=== PATIENT | female | born 1940 | race Caucasian/White ===

== ENCOUNTER → 2018-08-12 | Outpatient (CLI) | payer OTHER, MEDICARE ==
[~2018-08-12] MED LIST: BACTROBAN CREAM30 G1 TOP; BISACODYL5 MG PO; DIOVAN320 MG PO; ERYTHROMYCIN250 MG PO; FIBERCON625 M1 PO; LEVOTHYROXIN0.125 M1 PO; MIRALAX17 GM PO; PACERONE 200 M200 M1 PO; REGLAN 10 MG TA10 MG PO; SENNA-DOCUSATE1 EACH PO
--- NOTE | 2018-08-12 15:20 | 2DMMODE ---
[place] [address] 2 D/M-MODE ECHOCARDIOGRAM Name: PATRICIA HOFFMAN Room: [facility]#: [id number] Admission: 08/12/18 Attend Phys: Aurea Todd MD Discharge: Date of : 36 Date of Service: 08/12/18 1520 Report #: [id number] THIS REPORT FOR: //name// APPROVED REPORT Study performed: 08/12/2018 12:57:58 EXAM: Comprehensive 2D, Doppler, and color-flow Echocardiogram Patient Location: Out-Patient BSA: 1.76 HR: 109 bpm BP: 109/67 mmHg Other Information Study Quality: Good Indications Atrial Fibrillation Fatigue 2D Dimensions IVSd: 11.47 (7-11mm) LVOT Diam: 20.08 (18-24mm) LVDd: 51.41 mm PWd: 10.42 (7-11mm) Ascending Ao: 32.15 (22-36mm) LVDs: 34.26 (25-40mm) Aortic Root: 25.23 mm Volumes Left Atrial Volume (Systole) LA ESV Index: 18.20 mL/m2 Aortic Valve AoV Peak Crispin.: 2.04 m/s AO Peak Gr.: 16.61 mmHg LVOT Max P.36 mmHg AO Mean Gr.: 10.37 mmHg LVOT Mean P.16 mmHg LVOT Max V: 0.77 m/s AO V2 VTI: 38.10 cm LVOT Mean V: 0.50 m/s CECILIA (VTI): 1.33 cm2 LVOT V1 VTI: 16.04 cm Mitral Valve MV Decel. Time: 246.52 ms MV PHT: 71.49 ms MVA (PHT): 3.08 [place]2 [place] [address] 2 D/M-MODE ECHOCARDIOGRAM Name: DALTONPATRICIA MAVIS Room: [facility]#: [id number] Admission: 08/12/18 Attend Phys: Aurea Todd MD Discharge: Date of : 36 Date of Service: 08/12/18 1520 Report #: [id number] TDI Medial E' Crispin.: 0.09 m/s Lateral E' Crispin.: 0.11 m/s Pulmonary Valve PV Peak Crispin.: 1.03 m/s PV Peak Gr.: 4.27 mmHg Tricuspid Valve RAP Estimate: 5.00 mmHg TR Peak Gr.: 26.23 mmHg RVSP: 31.23 mmHg PA Pressure: 31.23 mmHg Left Ventricle The left ventricle is normal size. There is normal LV segmental wall motion. There is normal left ventricular wall thickness. Left ventricular systolic function is normal. The left ventricular ejection fraction is within the normal range. LVEF is 55-60%. The left ventricular diastolic function is normal. Right Ventricle The right ventricle is normal size. The right ventricular systolic function is normal. Atria The left atrium size is normal. The right atrium size is normal. Aortic Valve Aortic valve is mildly calcified. No aortic regurgitation is present. Mild aortic stenosis. Mitral Valve Mild mitral annular calcification. Mild mitral regurgitation. No evidence of mitral valve stenosis. Tricuspid Valve The tricuspid valve is normal in structure. Mild tricuspid regurgitation. estimated pa pressure 40 mm Hg Pulmonic Valve The pulmonary valve is normal in structure. There is no pulmonic valvular regurgitation. Great Vessels The aortic root is normal in size. IVC is normal in size and collapses >50% [place] [address] 2 D/M-MODE ECHOCARDIOGRAM Name: PATRICIA HOFFMAN Room: [facility]#: [id number] Admission: 08/12/18 Attend Phys: Aurea Todd MD Discharge: Date of : 36 Date of Service: 08/12/18 1520 Report #: [id number] Pericardium There is no pericardial effusion. <Conclusion> LVEF is 55-60%. Mild aortic stenosis. Mild mitral regurgitation. Mild tricuspid regurgitation. estimated pa pressure 40 mm Hg <ELECTRONICALLY SIGNED> By: Kvng Phipps MD, [facility] 08/12/18 1520 1520 1520 Kvng Phipps MD, FACC /INF
== END ==
LOC: M.CRD 12:07
DX: I08.3 Combined rheumatic disorders of mitral, aortic and tricuspid valves (principal); I48.91 Unspecified atrial fibrillation; R93.1 Abnormal findings on diagnostic imaging of heart and coronary circulation

== ENCOUNTER → 2018-08-12 | Outpatient (CLI) | payer OTHER | LOC: M.CT 12:22 | DX: Z13.6 Encounter for screening for cardiovascular disorders (principal) ==

== ENCOUNTER → 2018-10-03 | Outpatient (CLI) | payer OTHER, MEDICARE ==
[~2018-10-03] MED LIST changes: +ASPIR 8181 MG PO; +BENICAR40 MG PO; +SYNTHROID175 MCG PO
--- NOTE | 2018-10-03 14:12 | CARDNUC ---
[place] [address] CARDIAC NUCLEAR IMAGING REPORT Name: PATRICIA HOFFMAN Room: [facility]#: [id number] Admission: 10/03/18 Attend Phys: Kvng Phipps MD Discharge: Date of : 36 Date of Service: 10/03/18 1412 Report #: [id number] THIS REPORT FOR: //name// APPROVED REPORT Imaging Protocol: Rest Tc-99m/Stress Tc-99m 1 day Study performed: 10/03/2018 07:30:00 Indication: Fatigue Patient Location: Out-Patient Stress Tech: Nanette Zhou Stress Nurse: Lynette Sears RN NM Tech:ANDREW Buck Ht: 5 ft 7 in Wt: 140 lbs BSA: 1.74 m2 HR: 105 bpm BP: 162/105 mmHg BMI: 21.92 Rhythm: Atrial Fibrillation Medical History Medical History: CAD non obstructive, HTN, Atrial Fibrillation, Fatigue Medications: Olmesartan Allergies: No known drug allergies Cardiac Risk Factors: Age, HTN Previous Cardiac Procedures: NONE Pretest Chest Pain Characteristics: NONE Exercise History: Physically active Physical Disabilities: NONE Meds Held (24 hrs): NONE Meds Held (48 hrs): NONE Resting Data Rest SPECT myocardial perfusion imaging was performed in supine position 30 minutes following the intravenous injection of 11.9 mCi of Tc-99m Sestamibi. Time of rest injection: 0750 Date: 10/03/2018 The images were gated to evaluate regional wall motion and calculate left ventricular ejection fraction. Administration Route: IV Pharmacologic Stress Pharmacologic stress test was performed by injecting Regadenoson 0.4 mg IV push over 10-15 seconds immediately followed by the intravenous injection of 33.8 mCi of Tc-99[place] [address] CARDIAC NUCLEAR IMAGING REPORT Name: PATRICIA HOFFMAN Room: [facility]#: [id number] Admission: 10/03/18 Attend Phys: Kvng Phipps MD Discharge: Date of : 36 Date of Service: 10/03/18 1412 Report #: [id number] Pharmacologic stress test was performed by injecting Regadenoson 0.4 mg IV push followed by the intravenous injection of mCi of Time of stress injection: 929 Date: 10/03/2018 Administration Route: IV Gated Stress SPECT was performed 40 minutes after stress injection. The images were gated to evaluate regional wall motion and calculate left ventricular ejection fraction. Stress only was performed in the Supine position. Stress Test Details Stress Test: Pharmacologic stress testing performed using 0.4 mg of regadenoson per 5 mL given IV over 10 seconds. HR Max Heart Rate (APMHR): 140 bpm Resting HR: 105 bpm Target HR (85% APMHR): 119 bpm Max HR Achieved: 129 bpm % of APMHR: 92 Recovery HR: 117 bpm HR response to stress: Accelerated HR response to stress BP Resting BP: 162/105 mmHg Max BP: 137/88/ mmHg Recovery BP: 136/97 mmHg BP response to stress: Normal blood pressure response to stress. ECG Resting ECG: Atrial Fibrillation Stress ECG: Atrial Fibrillation ST Change: None Recovery ECG: Atrial Fibrillation Recovery ST Change: None Clinical Reason for Termination: Completed protocol Stress Symptoms: Fatigue SOA Nurse Comments PATIENT TOLERATED TEST WITHOUT MAJOR DIFFICULTY Stress ECG Conclusion negative [place] [address] CARDIAC NUCLEAR IMAGING REPORT Name: PATRICIA HOFFMAN Room: [facility]#: [id number] Admission: 10/03/18 Attend Phys: Kvng Phipps MD Discharge: Date of : 36 Date of Service: 10/03/18 1412 Report #: [id number] Study: Good Artifact: Mild Diaphragmatic artifact Lung Uptake: Normal Study Data At rest, the left ventricular ejection fraction was 51%.. Post stress, the left ventricular ejection was 51%.. SSS: 4 SRS: 0 SDS: 4 Perfusion Review of rest data reveals normal perfusion, without perfusion defects.Imaging obtained following vasodilator stress demonstrate a similar, uniform uptake of tracer without defects. LVEDV is normal.No segental wall motion abnormality seen. Images were reviewed using Tongxue. Wall Motion normal all segments Nuclear Conclusion ECG Findings: negative for ischemia afib noted Clinical Findings: negative for ischemia Nuclear Findings: negative for ischemia Exercise Capacity: not assessed Left Ventricular Function: normal Risk Study: low Negative perfusion nuclear stress test for ischemia or infarct.Low normal ejection fraction <Conclusion> negative for ischemia <ELECTRONICALLY SIGNED> By: Chase Spaulding MD, FACC 10/03/18 1412 11 141 Chase Spaulding MD, FACC /INF
== END ==
LOC: M.NUC 09-11 12:05
DX: I25.10 Atherosclerotic heart disease of native coronary artery without angina pectoris (principal); I48.91 Unspecified atrial fibrillation; I10 Essential (primary) hypertension; E78.00 Pure hypercholesterolemia, unspecified; Z90.710 Acquired absence of both cervix and uterus; Z90.11 Acquired absence of right breast and nipple; Z85.3 Personal history of malignant neoplasm of breast

== ENCOUNTER → 2020-05-04 | Outpatient (CLI) | payer OTHER, MEDICARE ==
[2020-05-04 09:53] LABS: ABSOLUTE BASOPHILS 0.1 thou/uL (0.0-0.2); ABSOLUTE EOSINOPHILS 0.1 thou/uL (0.0-0.7); ABSOLUTE LYMPHOCYTES 0.9 thou/uL (0.8-5.3); ABSOLUTE MONOCYTES 0.5 thou/uL (0.0-1.2); ABSOLUTE NEUTROPHILS 3.6 thou/uL (1.6-8.1); EOSINOPHILS 2.5 %; HEMATOCRIT 39.1 % (37.0-47.0); HEMOGLOBIN 13.6 gm/dL (12.0-15.0); LYMPHOCYTES 17.3 %; MCH 35.1 pg (26.0-34.0); MCHC 34.9 g/dL (28.0-37.0); MCV 100.5 fL (80.0-100.0); MONOCYTES 10.1 %; MPV 7.4 fl. (7.2-11.1); NUCLEATED RBCS 0 /100WBC; PLATELET COUNT* 237 thou/uL (150-400); POLYS 69.1 %; RBC 3.89 mil/uL (4.20-5.00); RDW-CV 13.5 % (10.5-14.5); WBC 5.2 thou/uL (4.0-11.0)
[2020-05-04 10:09] LABS: ALBUMIN 4.1 g/dL (3.4-5.0); CREATININE 0.9 mg/dL (0.6-1.3); POTASSIUM 3.2 mmol/L (3.5-5.1); TOTAL BILIRUBIN 0.7 mg/dL (<0.1-1.0); TOTAL PROTEIN 7.6 g/dL (6.4-8.2)
[2020-05-04 11:15] LABS: ESR (SEDRATE) 13 mm/hr (0-30)
[2020-05-05 04:06] LABS: GLYCOHEMOGLOBIN (HGB A1C) 5.2 % (4.8-5.6)
== END ==
LOC: M.LAB 09:16 → M.CT 11:00
PROVIDERS: ATTEND Internal Medicine Gastroenterology
DX: K57.30 Diverticulosis of large intestine without perforation or abscess without bleeding (principal); I25.10 Atherosclerotic heart disease of native coronary artery without angina pectoris; R63.4 Abnormal weight loss; M47.816 Spondylosis without myelopathy or radiculopathy, lumbar region

== ENCOUNTER 2021-01-21 03:34 | Inpatient (IN) | payer OTHER, MEDICARE ==
[~2021-01-21] VITALS: Ht 170.2 cm; Wt 63.3 kg
--- NOTE | ~2021-01-21 | PROC ---
[address] [address] PROCEDURE REPORT Name: PATRICIA HOFFMAN Room: [address] ADM IN M.R.#: [id number] Admission: 01/21/21 Attend Phys: Isabella Millan MD Discharge: Date of : 36 Report #: [id number] THIS REPORT FOR: cc: Jose Boone Vincent R. DO [facility],Medical Records Staff ~ For GI report, please see the Provation report in Perceptive 7 content. By: 1350Medical Records Staff FLYNN /AURE
[2021-01-21 03:35] VITALS: BP 181/105
[2021-01-21] MEDS ORDERED: LEVO-T100 MCG PO (03:44)
[2021-01-21] MEDS ORDERED: COZAAR 25 MG TA25 M1 PO (03:44)
[2021-01-21 05:26] LABS: ABSOLUTE EOSINOPHILS 0.1 thou/uL (0.0-0.7); ABSOLUTE LYMPHOCYTES 0.8 thou/uL (0.8-5.3); ABSOLUTE MONOCYTES 0.6 thou/uL (0.0-1.2); ABSOLUTE NEUTROPHILS 8.7 thou/uL (1.6-8.1); BASOPHILS 0.4 %; HEMATOCRIT 33.2 % (37.0-47.0); HEMOGLOBIN 12.2 gm/dL (12.0-15.0); LYMPHOCYTES 8.1 %; MCH 35.9 pg (26.0-34.0); MCHC 36.6 g/dL (28.0-37.0); MCV 97.9 fL (80.0-100.0); MONOCYTES 6.3 %; MPV 7.3 fl. (7.2-11.1); NUCLEATED RBCS 0 /100WBC; PLATELET COUNT* 212 thou/uL (150-400); POLYS 84.2 %; RDW-CV 12.2 % (10.5-14.5); WBC 10.3 thou/uL (4.0-11.0)
[2021-01-21 05:48] LABS: CALCIUM 8.6 mg/dL (8.5-10.1); CREATININE 0.7 mg/dL (0.6-1.3)
[2021-01-21 05:51] LABS: POTASSIUM 2.3 mmol/L (3.5-5.1)
[2021-01-21 09:12] VITALS: BP 126/79
[2021-01-21 09:21] LABS: CALCIUM 8.1 mg/dL (8.5-10.1); CREATININE 0.6 mg/dL (0.6-1.3)
[2021-01-21 09:22] LABS: POTASSIUM 2.3 mmol/L (3.5-5.1)
--- NOTE | 2021-01-21 12:08 | 2DMMODE ---
[place] [address] 2 D/M-MODE ECHOCARDIOGRAM Name: PATRICIA HOFFMAN Room: [place] [address] ADM IN [place]#: [id number] Admission: 01/21/21 Attend Phys: Isabella Millan, Discharge: Date of : 36 Date of Service: 01/21/21 1207 Report #: [id number] THIS REPORT FOR: cc: Jose Boone,Jose Rene,Sotero Pugh MD [facility] ~ APPROVED REPORT Study performed: 01/21/2021 09:18:47 EXAM: Comprehensive 2D, Doppler, and color-flow Echocardiogram Patient Location: In-Patient Room #: er Status: routine BSA: 1.66 HR: 98 bpm BP: 126/79 mmHg Rhythm: Atrial Fibrillation Other Information Study Quality: Good Indications Pre-Op Atrial Fibrillation 2D Dimensions IVSd: 10.59 (7-11mm) LVOT Diam: 21.45 (18-24mm) LVDd: 48.70 mm PWd: 11.13 (7-11mm) Ascending Ao: 32.28 (22-36mm) LVDs: 33.76 (25-40mm) Aortic Root: 32.28 mm Volumes Left Atrial Volume (Systole) LA ESV Index: 37.80 mL/m2 Aortic Valve AoV Peak Crispin.: 2.78 m/s AO Peak Gr.: 30.88 mmHg LVOT Max P.06 mmHg AO Mean Gr.: 18.82 mmHg LVOT Mean P.10 mmHg LVOT Max V: 0.72 m/s AO V2 VTI: 51.69 cm LVOT Mean V: 0.49 m/s CECILIA (VTI): 0.99 cm2 LVOT V1 VTI: 14.11 [place] [address] 2 D/M-MODE ECHOCARDIOGRAM Name: PATRICIA HOFFMAN MAVIS Room: [address] IN [facility]#: [id number] Admission: 01/21/21 Attend Phys: Isabella Millan, Discharge: Date of : 36 Date of Service: 01/21/21 1207 Report #: [id number] TDI Medial E' Crispin.: 0.10 m/s Lateral E' Crispin.: 0.07 m/s Pulmonary Valve PV Peak Crispin.: 1.15 m/s PV Peak Gr.: 5.31 mmHg Tricuspid Valve RAP Estimate: 5.00 mmHg TR Peak Gr.: 33.94 mmHg RVSP: 38.00 mmHg PA Pressure: 38.00 mmHg Left Ventricle The left ventricle is normal size. There is normal LV segmental wall motion. Mild concentric left ventricular hypertrophy. Left ventricular systolic function is normal. The left ventricular ejection fraction is within the normal range. LVEF is 60-65%. This study is not technically sufficient to allow evaluation of the LV diastolic function due to atrial fibrillation. Right Ventricle The right ventricle is normal size. The right ventricular systolic function is normal. Atria Left atrium is mildly dilated. The right atrium size is normal. Aortic Valve Moderate aortic valve sclerosis. No aortic regurgitation is present. Mild to moderate aortic stenosis. Mitral Valve Moderate mitral annular calcification. Moderate mitral regurgitation. No evidence of mitral valve stenosis. Tricuspid Valve The tricuspid valve is normal in structure. Mild tricuspid regurgitation. Mild pulmonary hypertension. Pulmonic Valve The pulmonary valve is normal in structure. There is no pulmonic valvular regurgitation[place] [address] 2 D/M-MODE ECHOCARDIOGRAM Name: PATRICIA HOFFMAN Room: [address] IN ..#: [id number] Admission: 01/21/21 Attend Phys: Isabella Millan, Discharge: Date of : 36 Date of Service: 01/21/21 1207 Report #: [id number] The aortic root is normal in size. IVC is normal in size and collapses >50% with inspiration. Pericardium There is no pericardial effusion. <Conclusion> The left ventricle is normal size. Mild concentric left ventricular hypertrophy. Left ventricular systolic function is normal. The left ventricular ejection fraction is within the normal range. LVEF is 60-65%. This study is not technically sufficient to allow evaluation of the LV diastolic function due to atrial fibrillation. The right ventricle is normal size. Left atrium is mildly dilated. Moderate aortic valve sclerosis. No aortic regurgitation is present. Mild to moderate aortic stenosis. Moderate mitral annular calcification. Moderate mitral regurgitation. No evidence of mitral valve stenosis. The tricuspid valve is normal in structure. Mild tricuspid regurgitation. Mild pulmonary hypertension. IVC is normal in size and collapses >50% with inspiration. There is no pericardial effusion. There is normal LV segmental wall motion. <ELECTRONICALLY SIGNED> By: Sotero Sneed MD, FACC 01/21/211206 06 06 Sotero Sneed MD, FACC /INF
[2021-01-21 13:12] VITALS: BP 149/97
[2021-01-21] MEDS ORDERED: CELEXA 10 MG TA10 M1 PO (13:42)
[2021-01-21] MEDS ORDERED: ONDANSETRON ODT8 MG PO (13:42)
[2021-01-21] MEDS ORDERED: LEVOTHYROXINE75 MC1 PO (13:42)
--- NOTE | 2021-01-21 14:37 | EKG ---
[place] [address] ELECTROCARDIOGRAM REPORT Name: PATRICIA HOFFMAN Room: [place] [address] ADM IN .R.#: [id number] Admission: 01/21/21 Attend Phys: Isabella Millan, Discharge: Date of : 36 Date of Service: 01/21/21 0456 Report #: [id number] THIS REPORT FOR: //name// [facility] ED Test Date: 2021-01-21 Test Time: 04:56:43 Pat Name: PATRICIA HOFFMAN Department: Room: [facility] Gender: F House Carpenter: : 1940 Requested By: Larissa Vargas Order Number: [id number] MD: Sotero Sneed Measurements Intervals [place] Rate: 86 P: WI: QRS: 22 QRSD: 99 T: 12 QT: 394 QTc: 472 Interpretive Statements Atrial fibrillation Probable left ventricular hypertrophy Compared to ECG 05/28/2015 07:41:36 Sinus rhythm no longer present Electronically Signed On 01-21-2021 14:37:40 CDT by Sotero Sneed [email or web address] <ELECTRONICALLY SIGNED> By: Sotero Sneed MD, [facility] 01/21/21 1437 0456 0456 Sotero Sneed MD, [facility] /EPI
[2021-01-21 15:27] LABS: CREATININE 0.8 mg/dL (0.6-1.3)
[2021-01-21 15:28] LABS: POTASSIUM 3.7 mmol/L (3.5-5.1)
[2021-01-21 16:25] VITALS: BP 157/94
[2021-01-21 20:50] VITALS: BP 168/94
[2021-01-22] VITALS: BP 132/69
[2021-01-22 04:00] VITALS: BP 138/83
[2021-01-22 11:04] LABS: CALCIUM 7.9 mg/dL (8.5-10.1); CREATININE 0.6 mg/dL (0.6-1.3); POTASSIUM 3.3 mmol/L (3.5-5.1)
[2021-01-22 12:00] VITALS: BP 134/81
[2021-01-22 17:35] VITALS: BP 146/83
[2021-01-22 17:37] LABS: CALCIUM 7.9 mg/dL (8.5-10.1); CREATININE 0.7 mg/dL (0.6-1.3); POTASSIUM 3.3 mmol/L (3.5-5.1)
[2021-01-22 19:38] VITALS: BP 122/80
[2021-01-22 23:56] VITALS: BP 160/88
[2021-01-23 04:25] LABS: CALCIUM 8.1 mg/dL (8.5-10.1); CREATININE 0.7 mg/dL (0.6-1.3); POTASSIUM 4.1 mmol/L (3.5-5.1)
[2021-01-23 04:40] VITALS: BP 160/100
[2021-01-23 08:00] VITALS: BP 151/107
[2021-01-23 08:40] LABS: CALCIUM 8.1 mg/dL (8.5-10.1); CREATININE 0.6 mg/dL (0.6-1.3); POTASSIUM 3.6 mmol/L (3.5-5.1)
[2021-01-23 12:10] LABS: CALCIUM 8.1 mg/dL (8.5-10.1); CREATININE 0.8 mg/dL (0.6-1.3); POTASSIUM 3.3 mmol/L (3.5-5.1)
[2021-01-23 15:42] LABS: CALCIUM 7.7 mg/dL (8.5-10.1); CREATININE 0.8 mg/dL (0.6-1.3); POTASSIUM 3.6 mmol/L (3.5-5.1)
[2021-01-23 17:58] VITALS: BP 138/76
[2021-01-23 20:00] VITALS: BP 147/91
[2021-01-24 00:46] VITALS: BP 161/89
[2021-01-24 04:36] LABS: HEMATOCRIT 29.6 % (37.0-47.0); HEMOGLOBIN 10.4 gm/dL (12.0-15.0); MCH 35.5 pg (26.0-34.0); MCHC 35.2 g/dL (28.0-37.0); MCV 100.7 fL (80.0-100.0); MPV 8.1 fl. (7.2-11.1); RBC 2.94 mil/uL (4.20-5.00); RDW-CV 12.5 % (10.5-14.5); WBC 8.9 thou/uL (4.0-11.0)
[2021-01-24 04:40] LABS: CALCIUM 7.7 mg/dL (8.5-10.1); CREATININE 0.7 mg/dL (0.6-1.3); POTASSIUM 3.3 mmol/L (3.5-5.1)
[2021-01-24 05:50] VITALS: BP 128/82
[2021-01-24 08:00] VITALS: BP 160/100
[2021-01-24 11:09] VITALS: BP 164/104
[2021-01-24 21:07] VITALS: BP 135/80
[2021-01-25] VITALS: BP 108/68
[2021-01-25 04:00] VITALS: BP 128/73
[2021-01-25 04:22] LABS: HEMATOCRIT 27.7 % (37.0-47.0); HEMOGLOBIN 9.8 gm/dL (12.0-15.0); MCH 35.9 pg (26.0-34.0); MCHC 35.3 g/dL (28.0-37.0); MCV 101.8 fL (80.0-100.0); NUCLEATED RBCS 0 /100WBC; PLATELET COUNT* 181 thou/uL (150-400); RBC 2.72 mil/uL (4.20-5.00); RDW-CV 12.3 % (10.5-14.5); WBC 11.4 thou/uL (4.0-11.0)
[2021-01-25 04:32] LABS: ALBUMIN 2.4 g/dL (3.4-5.0); CALCIUM 7.8 mg/dL (8.5-10.1); CREATININE 0.6 mg/dL (0.6-1.3); PHOSPHORUS* 3.1 mg/dL (2.5-4.9); POTASSIUM 3.7 mmol/L (3.5-5.1); TOTAL BILIRUBIN 0.7 mg/dL (<0.1-1.0); TOTAL PROTEIN 5.2 g/dL (6.4-8.2)
[2021-01-25 05:12] LABS: ABSOLUTE EOSINOPHILS 0.1 thou/uL (0.0-0.7); ABSOLUTE LYMPHOCYTES 0.7 thou/uL (0.8-5.3); ABSOLUTE MONOCYTES 0.9 thou/uL (0.0-1.2); ABSOLUTE NEUTROPHILS 9.6 thou/uL (1.6-8.1); BASOPHILS 0.3 %; EOSINOPHILS 0.7 %; LYMPHOCYTES 6.4 %; MONOCYTES 8.2 %; POLYS 84.4 %
[2021-01-25 08:00] VITALS: BP 150/86
[2021-01-25 12:00] VITALS: BP 103/73
--- NOTE | 2021-01-25 15:12 | CON ---
[address] [address] CONSULTATION Name: PATRICIA HOFFMAN Room: [address] IN M.R.#: [id number] Admission: 01/21/21 Attend Phys: Isabella Millan MD Discharge: Date of : 36 Report #: [id number] THIS REPORT FOR: cc: Jose Boone Vincent R. DO Arakelov,Cristobal Stiles MD ~ DATE OF CONSULTATION: 01/22/2021 REQUESTING PHYSICIAN: Isabella Millan MD REASON FOR CONSULTATION: Hyponatremia. HISTORY OF PRESENT ILLNESS: The patient is a very pleasant 80-year-old lady with medical history significant for anxiety/depression, hypertension, hypothyroidism, who presented after a fall. She fell at home and fractured her femur, right femoral neck was fractured. The patient was evaluated to be taken to the surgery and was found to have sodium of 123. She was given saline and actually sodium dropped to 121. Her serum creatinine is normal. PAST MEDICAL HISTORY: As mentioned earlier. MEDICATIONS: Reviewed. From my standpoint, she was on Celexa. SOCIAL HISTORY: No tobacco or alcohol abuse. FAMILY HISTORY: No history of hyponatremia. PHYSICAL EXAMINATION: GENERAL: She is asleep, no acute distress. VITAL SIGNS: Blood pressure 140/80, heart rate 90, afebrile. HEENT: Pupils are round. NECK: Supple. LUNGS: Clear. CARDIOVASCULAR: Regular rate. ABDOMEN: Soft. ASSESSMENT: 1. Hyponatremia, likely syndrome of inappropriate antidiuretic hormone secretion due to combination of pain and/or Celexa. 2. Hyperkalemia, corrected. 3. Hypertension. 4. [place] [address] CONSULTATION Name: PATRICIA HOFFMAN Room: [address] IN .R.#: [id number] Admission: 01/21/21 Attend Phys: Isabella Millan MD Discharge: Date of : 36 Report #: [id number] PLAN:. Stop NS as her serum sodium was actually getting worse after NS was given. The blood work on computer is from yesterday. I do not have anything from today. We will wait for that and for this level of the sodium I would not recommend surgery. I would give a little, 3% saline and monitor sodium. <ELECTRONICALLY SIGNED> By: Cristobal Allison MD 01/25/21 1512 0918 0950Cristobal Allison MD /nt
[2021-01-25 16:00] VITALS: BP 111/49
[2021-01-25 20:21] VITALS: BP 138/100
[2021-01-26 00:54] VITALS: BP 133/82
[2021-01-26 04:41] LABS: CALCIUM 7.8 mg/dL (8.5-10.1); CREATININE 0.5 mg/dL (0.6-1.3); POTASSIUM 3.8 mmol/L (3.5-5.1)
[2021-01-26 04:50] LABS: ABSOLUTE EOSINOPHILS 0.1 thou/uL (0.0-0.7); ABSOLUTE LYMPHOCYTES 0.7 thou/uL (0.8-5.3); ABSOLUTE MONOCYTES 1.3 thou/uL (0.0-1.2); ABSOLUTE NEUTROPHILS 8.6 thou/uL (1.6-8.1); BASOPHILS 0.2 %; EOSINOPHILS 0.6 %; HEMATOCRIT 27.2 % (37.0-47.0); HEMOGLOBIN 9.8 gm/dL (12.0-15.0); LYMPHOCYTES 6.6 %; MCHC 35.9 g/dL (28.0-37.0); MCV 100.3 fL (80.0-100.0); MPV 8.1 fl. (7.2-11.1); NUCLEATED RBCS 0 /100WBC; PLATELET COUNT* 190 thou/uL (150-400); POLYS 80.6 %; RBC 2.71 mil/uL (4.20-5.00); RDW-CV 12.3 % (10.5-14.5); WBC 10.7 thou/uL (4.0-11.0)
[2021-01-26 04:59] VITALS: BP 122/74
[2021-01-26 08:00] VITALS: BP 156/90
[2021-01-26 12:00] VITALS: BP 127/83
[2021-01-26 16:00] VITALS: BP 140/75
[2021-01-26 20:00] VITALS: BP 138/82
[2021-01-27 00:59] VITALS: BP 139/72
[2021-01-27 06:20] VITALS: BP 135/72
[2021-01-27 07:55] VITALS: BP 154/91
[2021-01-27 11:42] LABS: CALCIUM 8.2 mg/dL (8.5-10.1); CREATININE 0.8 mg/dL (0.6-1.3); POTASSIUM 4.3 mmol/L (3.5-5.1)
[2021-01-27 12:29] VITALS: BP 109/87
[2021-01-27 18:50] VITALS: BP 131/70
[2021-01-27 20:00] VITALS: BP 120/48
[2021-01-28] VITALS (8 sets, daily range): BP systolic 115–162; BP diastolic 63–87
[2021-01-28 05:19] LABS: CALCIUM 8.1 mg/dL (8.5-10.1); CREATININE 0.6 mg/dL (0.6-1.3); POTASSIUM 3.8 mmol/L (3.5-5.1)
[2021-01-28 17:04] LABS: URINE BILIRUBIN NEGATIVE (Negative); URINE BLOOD 2+ (Negative); URINE COLOR YELLOW; URINE GLUCOSE-RANDOM NEGATIVE (Negative); URINE KETONES TRACE (Negative); URINE LEUKOCYTES 1+ (Negative); URINE NITRITE POSITIVE (Negative); URINE PROTEIN NEGATIVE (Negative); URINE UROBILINOGEN 0.2 E.U./dl (0.2-1.0)
[2021-01-28 17:06] LABS: URINE CLARITY HAZY
[2021-01-28 17:07] LABS: SQUAMOUS >10 Many /LPF (0-3); URINE RBC 0-2 Rare /HPF (0-2); URINE WBC 0-5 Rare /HPF (0-5)
--- NOTE | 2021-01-28 17:07 | PATH ---
[address] [address] PATHOLOGY RPT PROCEDURE Name: ZULEIKA FLORES Room: [address] IN M.R.#: [id number] Admission: 01/21/21 Date of : 36 Discharge: Report #: [id number] Path Case #: [id number] [facility] Accession Number: [id number] . 01 Material submitted: . gastrointestinal site - GASTRIC BIOPSY . 01 Clinical history: . EGD IN OR SUBCAP FRACTURE, CHRONIC AFIB . 02 Diagnosis: Stomach "gastric biopsy": - Gastric antral mucosa with chronic gastritis. - Negative for active inflammation, intestinal metaplasia, dysplasia, and malignancy. - Negative for Helicobacter pylori. (MLK:shin; 01/28/2021) QMS 01/28/2021 1648 Local . 02 Electronically signed: . Bernardo Bajwa MD, Pathologist NPI- [id number] . 01 Gross description: . Received in formalin labeled "Zuleika Flores, gastric biopsy" are multiple gary-brown soft tissue fragments measuring in aggregate 1.2 x 0.5 x 0.1 cm. The specimen is submitted entirely in A1. ([facility]; 01/27/2021) [facility] 01/27/2021 1257 Local . 02 Microscopic: . Immunohistochemical stain results (properly controlled) - Helicobacter pylori (A1) - Negative for organisms (MLK:shin; 01/28/2021) . 02 Pathologist provided ICD-10: K29.50 . 02 CPT . 335586, H81515 Specimen Comment: A courtesy copy of this report has been sent to [phone] Specimen Comment: [phone], Specimen Comment: Report sent to , DR CRAMER / DR BUNCH Performed at: [address] [facility], [place] [id number] MD Marques Saenz MD Phone: [phone] [place] [address] PATHOLOGY RPT PROCEDURE Name: ZULEIKA FLORES Room: [address] IN M.R.#: [id number] Admission: 01/21/21 Date of : 38 Discharge: Report #: [id number] Path Case #: [id number] Performed at: [address] [facility] [id number] MD Chandrakant Hernandez MD Phone: [phone]
[2021-01-28 17:08] LABS: AMORPHOUS URATES Few /LPF (None Seen); BACTERIA 1-9 Few /HPF (None Seen); CASTS None Seen /LPF (None Seen)
[2021-01-29 00:55] VITALS: BP 122/67
[2021-01-29 06:44] VITALS: BP 122/68
[2021-01-29 08:15] VITALS: BP 129/27
[2021-01-29 09:00] VITALS: BP 126/69
[2021-01-29 14:28] LABS: HEMATOCRIT 20.4 % (37.0-47.0); HEMOGLOBIN 7.2 gm/dL (12.0-15.0); MCH 35.7 pg (26.0-34.0); MCHC 35.4 g/dL (28.0-37.0); MCV 100.9 fL (80.0-100.0); MPV 7.3 fl. (7.2-11.1); NUCLEATED RBCS 0 /100WBC; PLATELET COUNT* 272 thou/uL (150-400); RBC 2.02 mil/uL (4.20-5.00); RDW-CV 12.8 % (10.5-14.5); WBC 9.8 thou/uL (4.0-11.0)
[2021-01-29 14:44] LABS: ALBUMIN 2.3 g/dL (3.4-5.0); CALCIUM 7.7 mg/dL (8.5-10.1); CREATININE 0.9 mg/dL (0.6-1.3); MAGNESIUM 1.9 mg/dL (1.8-2.4); POTASSIUM 3.7 mmol/L (3.5-5.1); TOTAL BILIRUBIN 0.4 mg/dL (<0.1-1.0); TOTAL PROTEIN 5.3 g/dL (6.4-8.2)
[2021-01-29 15:04] LABS: ABSOLUTE LYMPHOCYTES 0.7 thou/uL (0.8-5.3); ABSOLUTE MONOCYTES 0.8 thou/uL (0.0-1.2); ABSOLUTE NEUTROPHILS 8.3 thou/uL (1.6-8.1); HYPOCHROMASIA Occasional; PLATELET ESTIMATE ADEQUATE
[2021-01-29 15:05] LABS: MACROCYTES Occasional; MICROCYTES Occasional
[2021-01-29 16:00] VITALS: BP 117/70
[2021-01-29 20:00] VITALS: BP 128/69
[2021-01-30] VITALS (7 sets, daily range): BP systolic 108–150; BP diastolic 41–77
[2021-01-30 06:55] LABS: URINE BILIRUBIN NEGATIVE (Negative); URINE BLOOD 2+ (Negative); URINE CLARITY CLEAR; URINE COLOR YELLOW; URINE GLUCOSE-RANDOM NEGATIVE (Negative); URINE KETONES TRACE (Negative); URINE LEUKOCYTES 1+ (Negative); URINE NITRITE POSITIVE (Negative); URINE PROTEIN NEGATIVE (Negative); URINE UROBILINOGEN 0.2 E.U./dl (0.2-1.0)
[2021-01-30 07:01] LABS: BACTERIA >30 Many /HPF (None Seen); CASTS None Seen /LPF (None Seen); MUCUS None Seen strn/LPF (None Seen); SQUAMOUS 0-3 Few /LPF (0-3); URINE RBC 3-10 Few /HPF (0-2); URINE WBC 0-5 Rare /HPF (0-5)
[2021-01-30 07:02] LABS: CRYSTALS None Seen /LPF (None Seen)
[2021-01-30 11:07] LABS: ABSOLUTE LYMPHOCYTES 0.7 thou/uL (0.8-5.3); ABSOLUTE MONOCYTES 0.8 thou/uL (0.0-1.2); ABSOLUTE NEUTROPHILS 10.1 thou/uL (1.6-8.1); BASOPHILS 0.2 %; EOSINOPHILS 0.1 %; LYMPHOCYTES 6.3 %; MCH 35.1 pg (26.0-34.0); MCV 103.2 fL (80.0-100.0); MONOCYTES 6.5 %; NUCLEATED RBCS 0 /100WBC; PLATELET COUNT* 253 thou/uL (150-400); POLYS 86.9 %; RBC 1.93 mil/uL (4.20-5.00); RDW-CV 12.5 % (10.5-14.5); WBC 11.6 thou/uL (4.0-11.0)
[2021-01-30 11:10] LABS: CREATININE 0.7 mg/dL (0.6-1.3); POTASSIUM 3.8 mmol/L (3.5-5.1)
[2021-01-30 11:14] LABS: HEMOGLOBIN 6.8 gm/dL (12.0-15.0)
[2021-01-30 11:15] LABS: HEMATOCRIT 19.9 % (37.0-47.0)
[2021-01-31] VITALS: BP 120/90
[2021-01-31 04:00] VITALS: BP 163/90
[2021-01-31 16:49] VITALS: BP 121/71
[2021-01-31 20:10] LABS: ABSOLUTE EOSINOPHILS 0.1 thou/uL (0.0-0.7); ABSOLUTE LYMPHOCYTES 1.3 thou/uL (0.8-5.3); ABSOLUTE MONOCYTES 0.9 thou/uL (0.0-1.2); ABSOLUTE NEUTROPHILS 10.4 thou/uL (1.6-8.1); BASOPHILS 0.1 %; EOSINOPHILS 0.7 %; HEMATOCRIT 23.2 % (37.0-47.0); HEMOGLOBIN 8.1 gm/dL (12.0-15.0); LYMPHOCYTES 10.1 %; MCH 33.5 pg (26.0-34.0); MCHC 34.7 g/dL (28.0-37.0); MONOCYTES 7.4 %; MPV 7.4 fl. (7.2-11.1); NUCLEATED RBCS 0 /100WBC; PLATELET COUNT* 305 thou/uL (150-400); POLYS 81.7 %; RDW-CV 14.8 % (10.5-14.5); WBC 12.7 thou/uL (4.0-11.0)
[2021-01-31 20:11] LABS: MCV 96.5 fL (80.0-100.0)
[2021-01-31 20:29] LABS: ALBUMIN 2.1 g/dL (3.4-5.0); CALCIUM 7.5 mg/dL (8.5-10.1); CREATININE 0.6 mg/dL (0.6-1.3); MAGNESIUM 1.6 mg/dL (1.8-2.4); POTASSIUM 3.5 mmol/L (3.5-5.1); TOTAL BILIRUBIN 0.4 mg/dL (<0.1-1.0); TOTAL PROTEIN 5.1 g/dL (6.4-8.2)
[2021-01-31 20:55] VITALS: BP 141/73
[2021-01-31 23:49] VITALS: BP 112/62
[2021-02-01 04:18] VITALS: BP 101/61
[2021-02-01 09:09] VITALS: BP 146/76
[2021-02-01 12:00] VITALS: BP 108/69
[2021-02-01 20:00] VITALS: BP 112/52
[2021-02-02] MEDS ORDERED: REGLAN 10 MG TA10 MG PO (09:04)
[2021-02-02] MEDS ORDERED: HYDROCODON-ACE1 EAC7 PO (09:07)
[2021-02-02] MEDS ORDERED: COZAAR 50 MG TA50 M1 PO (09:07)
[2021-02-02] MEDS ORDERED: CARDIZEM CD120 MG PO (09:07)
[2021-02-02] MEDS ORDERED: TOPROL XL25 MG PO (09:07)
[2021-02-02] MEDS ORDERED: MIRTAZAPINE15 M2 PO (09:07)
[2021-02-02 09:16] VITALS: BP 113/52
[2021-02-02 09:52] LABS: HEMOGLOBIN 9.5 gm/dL (12.0-15.0); MCH 34.1 pg (26.0-34.0); MCHC 32.8 g/dL (28.0-37.0); MPV 6.8 fl. (7.2-11.1); RBC 2.78 mil/uL (4.20-5.00); RDW-CV 14.9 % (10.5-14.5); WBC 15.4 thou/uL (4.0-11.0)
[2021-02-02 10:00] LABS: ALBUMIN 2.3 g/dL (3.4-5.0); CALCIUM 7.8 mg/dL (8.5-10.1); CREATININE 0.7 mg/dL (0.6-1.3); POTASSIUM 3.9 mmol/L (3.5-5.1); TOTAL BILIRUBIN 0.4 mg/dL (<0.1-1.0); TOTAL PROTEIN 5.5 g/dL (6.4-8.2)
[2021-02-02 10:08] LABS: MCV 104.1 fL (80.0-100.0)
[2021-02-02 15:18] VITALS: BP 117/62
[2021-02-02 20:00] VITALS: BP 121/70
[2021-02-03] VITALS: BP 146/66
[2021-02-03 08:20] VITALS: BP 145/68
[2021-02-03 11:46] VITALS: BP 116/56
[2021-02-03 15:42] VITALS: BP 144/97
[2021-02-03 20:00] VITALS: BP 119/65
[2021-02-04 00:45] VITALS: BP 128/64
[2021-02-04 04:28] LABS: HEMATOCRIT 25.2 % (37.0-47.0); HEMOGLOBIN 8.4 gm/dL (12.0-15.0); MCH 33.7 pg (26.0-34.0); MCHC 33.5 g/dL (28.0-37.0); MCV 100.6 fL (80.0-100.0); MPV 6.5 fl. (7.2-11.1); RBC 2.5 mil/uL (4.20-5.00); RDW-CV 14.4 % (10.5-14.5)
[2021-02-04 04:40] VITALS: BP 134/69
[2021-02-04 04:56] LABS: CALCIUM 7.6 mg/dL (8.5-10.1); CREATININE 0.6 mg/dL (0.6-1.3); POTASSIUM 3.1 mmol/L (3.5-5.1)
[2021-02-04 08:26] VITALS: BP 122/70
[2021-02-04 11:02] VITALS: BP 137/71
[2021-02-04 17:31] VITALS: BP 108/52
[2021-02-04 20:44] VITALS: BP 130/73
[2021-02-05 00:32] VITALS: BP 121/62
[2021-02-05 08:00] VITALS: BP 140/72
[2021-02-05 12:00] VITALS: BP 111/66
[2021-02-05 16:00] VITALS: BP 136/69
[2021-02-05 20:00] VITALS: BP 125/63
[2021-02-05 23:30] VITALS: BP 117/65
[2021-02-06 03:30] VITALS: BP 134/73
[2021-02-06 04:46] LABS: ALBUMIN 2.3 g/dL (3.4-5.0); CALCIUM 7.9 mg/dL (8.5-10.1); CREATININE 0.6 mg/dL (0.6-1.3); TOTAL BILIRUBIN 0.5 mg/dL (<0.1-1.0); TOTAL PROTEIN 5.1 g/dL (6.4-8.2)
[2021-02-06 05:26] LABS: POTASSIUM 3.6 mmol/L (3.5-5.1)
[2021-02-06 05:37] LABS: HEMATOCRIT 22.5 % (37.0-47.0); MCH 35.2 pg (26.0-34.0); MCHC 35.4 g/dL (28.0-37.0); MCV 99.4 fL (80.0-100.0); MPV 6.8 fl. (7.2-11.1); NUCLEATED RBCS 0 /100WBC; PLATELET COUNT* 460 thou/uL (150-400); RBC 2.27 mil/uL (4.20-5.00); RDW-CV 15.1 % (10.5-14.5); WBC 9.2 thou/uL (4.0-11.0)
[2021-02-06 06:55] LABS: ABSOLUTE EOSINOPHILS 0.2 thou/uL (0.0-0.7); ABSOLUTE LYMPHOCYTES 1.7 thou/uL (0.8-5.3); ABSOLUTE MONOCYTES 0.4 thou/uL (0.0-1.2); ABSOLUTE NEUTROPHILS 6.9 thou/uL (1.6-8.1); ANISOCYTOSIS 1+; PLATELET ESTIMATE INCREASED; POIKILOCYTOSIS 1+
[2021-02-06 08:00] VITALS: BP 176/74
[2021-02-06 12:00] VITALS: BP 97/48
[2021-02-06 16:00] VITALS: BP 136/70
[2021-02-06 20:00] VITALS: BP 125/58
[2021-02-07 00:30] VITALS: BP 109/75
[2021-02-07 04:21] VITALS: BP 120/64
[2021-02-07 08:20] VITALS: BP 87/51
[2021-02-07 12:12] VITALS: BP 108/59
--- NOTE | 2021-02-07 14:47 | OP ---
[address] [address] OPERATIVE REPORT Name: PATRICIA HOFFMAN Room: [address] IN M.R.#: [id number] Admission: 01/21/21 Attend Phys: Isabella Millan MD Discharge: Date of : 36 Report #: [id number] THIS REPORT FOR: cc: Jose Boone Vincent R. DO Kesl,Feliberto Funez DO ~ DATE OF SURGERY: 01/28/2021 PREOPERATIVE DIAGNOSIS: Left femoral neck fracture, displaced. POSTOPERATIVE DIAGNOSIS: Left femoral neck fracture, displaced. PROCEDURE: Left luz maria-hip arthroplasty. SURGEON: Feliberto Cruz DO ANESTHESIA: General. ANTIBIOTICS: Ancef. IV FLUIDS: Please see Anesthesia notes for details. ESTIMATED BLOOD LOSS: 150 mL. COMPLICATIONS: None. SPECIMENS: None. DRAINS: None. CONDITION: The patient stable to PACU. IMPLANTS: [employer] Echo fracture stem cemented size 9 standard offset standard length, +6 neck adapter, 46 mm bipolar head, [employer] cement. INDICATIONS FOR PROCEDURE: Displaced femoral neck fracture, left. The patient was originally admitted to the hospital with a right hip fracture and underwent luz maria-hip arthroplasty by my partner, Dr. Sifuentes. During her hospital stay, she sustained a fall. Films show displaced femoral neck fracture. I discussed with the patient's family the imaging diagnosis, treatment options, plan of luz maria-hip arthroplasty with reasoning and indications, the risks, complications and possible adverse outcomes of the injury. I answered their questions. Consent given to proceed. DESCRIPTION OF PROCEDURE: I marked the left lower extremity in the presence of operative team members, everyone agreed correct. [place] [address] OPERATIVE REPORT Name: PATRICIA HOFFMAN Room: [address] IN M.R.#: [id number] Admission: 01/21/21 Attend Phys: Isabella Millan MD Discharge: Date of : 38 Report #: [id number] operative suite, general anesthetic administered. She was transferred to the operative table, placed into the right lateral decubitus position, well padded. Left lower extremity sterilely prepped and draped in standard fashion. Timeout was performed, indicating correct patient, procedure, site, antibiotics and implants were present and sterile, all team members agreed. Anterolateral approach, scalpel through skin, full-thickness flaps down to IT band and fascia. IT band and fascia incised with scalpel and scissors. Charnley retractor placed deep. It should be noted that she had significant tearing of the gluteus medius and minimus off of the trochanter already with significant atrophy of those muscles. Anterolateral approach utilized to what was remaining off with a cuff tissue for repair and majority still attachment at the tip. Again, this was a fairly large tear to begin with. Capsule was another layer, T capsulotomy leaving the labrum undisturbed. Cleaned up the femoral neck with reciprocating saw one fingerbreadth above the lesser, removed head and neck, size is a 46, trialed appropriately and this was also same for other side. Began prepping the femur. Box osteotome, canal finder, distal reamer, lateralizer, then broaching sequentially to a 12. We then prepped the femur standard technique for cementing final 9 stem on the back table for cementation. Cement was mixed by standard technique on the back table, placed a restrictor distally in the appropriate position. After prepping the femur in standard technique for cementing, we then injected the cement restrictor and working proximally. I then placed the 9 stem in the appropriate amount of version, fitting in our cut, held this in the same position until cement fully hardened. We then began trialing, began with +3 and this is what she was on the other side; however, she felt short. We therefore went to a +6 leg length, felt more appropriate. She had excellent stability throughout all aspects of motion that I could take her through. No instability could be found at all. Dislocated the hip. Final 46 mm bipolar head with +6 neck with neck adaptor thrown, cleaned off trunnion and engaged the Henry taper, fully reduced the hip. With all final components in place, leg lengths felt excellent and she had excellent stability of the hip. We irrigated thoroughly with normal saline. Vancomycin powder placed deep. Hemostasis maintained. Capsule closed with #1 Vicryl. Gluteus were repaired with through bone suture #5 Ti-Cron, oversewn with #1 Vicryl, actually had good repair and better attachments than what we had prior to surgery. IT band and fascia closed with #1 Vicryl and oversewn with #1 Stratafix subQ, 2-0 Monocryl for deep layer, tacked the fascia, 2-0 Monocryl subQ, denice for skin. Debriefing performed, confirming procedure, blood loss, that all counts were correct and final. All team members agreed. A sterile silver dressing applied. She was transferred off the operating table supine to her bed. Leg lengths excellent. Abductor pillow in place. She was extubated and taken to PACU stable. POSTOPERATIVE COURSE AND EVALUATION: I spoke with her daughter and . Addressed questions to their satisfaction. She was resting in PACU, stable vital signs. Pain controlled. Neurovascularly intact distally in the [address] [place] [address] OPERATIVE REPORT Name: PATRICIA HOFFMAN Room: [address] ADM IN M.R.#: [id number] Admission: 01/21/21 Attend Phys: Isabella Millan MD Discharge: Date of : 36 Report #: [id number] extremity. No signs of DVT. PACU films show stable prosthesis in good position and alignment. No obvious fracture or dislocation. Weightbear as tolerated. Anterolateral hip precautions, PT, OT. Lovenox is ordered for DVT prophylaxis beginning tomorrow. COVID protocol followed at all times. <ELECTRONICALLY SIGNED> By: Feliberto Cruz DO 02/07/21 1447 2127 [id number] Cruz DO /nt
[2021-02-07 16:30] VITALS: BP 94/49
[2021-02-07 20:00] VITALS: BP 76/37
[2021-02-08] VITALS (7 sets, daily range): BP systolic 89–114; BP diastolic 40–55
[2021-02-08 04:41] LABS: MCH 34.7 pg (26.0-34.0); MCHC 34.6 g/dL (28.0-37.0); MCV 100.1 fL (80.0-100.0); MPV 6.8 fl. (7.2-11.1); RBC 1.53 mil/uL (4.20-5.00); RDW-CV 15.7 % (10.5-14.5); WBC 11.1 thou/uL (4.0-11.0)
[2021-02-08 05:01] LABS: CALCIUM 7.9 mg/dL (8.5-10.1); CREATININE 0.9 mg/dL (0.6-1.3); POTASSIUM 3.7 mmol/L (3.5-5.1)
[2021-02-08 05:25] LABS: HEMATOCRIT 15.3 % (37.0-47.0); HEMOGLOBIN 5.3 gm/dL (12.0-15.0)
[2021-02-08 21:27] LABS: HEMOGLOBIN 7.7 gm/dL (12.0-15.0)
[2021-02-09] VITALS: BP 108/59
[2021-02-09 04:00] VITALS: BP 128/57
[2021-02-09 04:44] LABS: HEMATOCRIT 22.7 % (37.0-47.0); HEMOGLOBIN 8.1 gm/dL (12.0-15.0); MCH 33.9 pg (26.0-34.0); MCHC 35.7 g/dL (28.0-37.0); RBC 2.39 mil/uL (4.20-5.00); RDW-CV 17.1 % (10.5-14.5); WBC 10.2 thou/uL (4.0-11.0)
[2021-02-09 05:08] LABS: CALCIUM 7.9 mg/dL (8.5-10.1); CREATININE 0.6 mg/dL (0.6-1.3); POTASSIUM 3.4 mmol/L (3.5-5.1)
[2021-02-09 11:27] VITALS: BP 129/57
[2021-02-09 16:00] VITALS: BP 109/55
[2021-02-09 20:00] VITALS: BP 120/81
--- NOTE | 2021-02-09 21:22 | OP ---
[address] [address] OPERATIVE REPORT Name: PATRICIA HOFFMAN Room: [address] IN M.R.#: [id number] Admission: 01/21/21 Attend Phys: Isabella Millan MD Discharge: Date of : 36 Report #: [id number] THIS REPORT FOR: cc: Jose Boone Vincent R. DO Justice,Bandar Mota DO ~ DATE OF SURGERY: 01/24/2021 PREOPERATIVE DIAGNOSIS: Right displaced subcapital femoral neck fracture. POSTOPERATIVE DIAGNOSIS: Right displaced subcapital femoral neck fracture. PROCEDURE: Right luz maria-hip arthroplasty. IMPLANTS: 1. Denis Echo cemented stem size 9. 2. 46 mm bipolar head with a +3 head. BOAT HOP: Bandar Sifuentes DO ANESTHESIA: Spinal plus local field block. FLUIDS: Crystalloid. ESTIMATED BLOOD LOSS: 200 mL. DRAINS: None. SPECIMENS: None. COMPLICATIONS: None. CONDITION: Stable. DISPOSITION: PACU to med/surg floor. PREOPERATIVE ANTIBIOTICS: 2 grams Ancef IV. INDICATIONS: The patient is a pleasant 80-year-old female who had a ground level fall Sunday afternoon. She has been admitted for further evaluation and treatment. She unfortunately was noted to be severely hyponatremic and has required electrolyte correction over the past 72 hours or so. She and her family were informed of the surgical plan as well as the risks, benefits and alternatives of this. They verbalized understanding and wanted to proceed. [facility] [address] [place] [address] OPERATIVE REPORT Name: PATRICIA HOFFMAN Room: [address] M.R.#: [id number] Admission: 01/21/21 Attend Phys: Isabella Millan MD Discharge: Date of : 36 Report #: [id number] FINDINGS: Evaluate the hip intraoperatively, she was noted to have a displaced subcapital femoral neck fracture as noted on x-ray. Her bone quality is osteoporotic in nature. Her soft tissues are appropriate for age, but generally fairly weak and friable. No other abnormalities were appreciated. She does have other than some mild to moderate OA. DESCRIPTION OF PROCEDURE: The patient was brought to the operative suite and given the benefit of a spinal anesthetic, she was then positioned into a lateral decubitus position on a pegboard. All bony prominences were well padded. An axillary roll was placed. Her right upper extremity was prepped and draped in the usual sterile fashion with a chlorhexidine scrub, alcohol rinse and ChloraPrep paint. A timeout was utilized to ensure proper operative patient, procedure, and extremity. Once antibiotic administration was verified, we began by making a standard curvilinear incision over the greater trochanter. An anterolateral approach to the hip was performed by splitting the IT band, placing a Charnley retractor, elevating the anterior one-fourth or one-third of the gluteus medius off the trochanter, developing the interval between gluteus minimus and the capsule and retracting this flap of muscle medially. We then performed a T-shaped capsulotomy off the greater trochanter and we were able to dislocate the fractured femur at that time. A standard neck osteotomy was performed with a reciprocating saw and then we removed the femoral head with a corkscrew. We trialled with a 46 and 47 mm shell and elected to place a 36 mm shell as it seemed to be the appropriate size. We had trouble getting a 47 into the acetabulum. We then turned our attention to femoral preparation. A Cobra retractor was placed behind the greater trochanter to protect the skin. We then used a box osteotome, a canal entry reamer and to gain access into the canal of the femur. We then sequentially reamed up to a size 14. We then broached up to a size 13 and this gave us a nice fit and fill distally. With that being the case, we elected to cement a size 9 stem. A distal cement restrictor was placed and cement was mixed on the back table. We then filled the canal of the femur with Denis Biomet polymethyl methacrylate and inserted the stem, attempted to keep it out of varus in doing so. We held it while the cement hardened. Once it was hard, we impacted a +3 mm head with 46 mm shell onto the Henry taper of the trunnion and reduced the hip of final time. Of note, prior to removing the final broach, we trialed reduced with a -3 and subsequently a +3 head. The +3 gave us the proper fit and shuck test as well as excellent stability upon attempted dislocation. We thoroughly irrigated multiple times throughout the case. Hemostasis was achieved with electrocautery, although no significant bleeding was encountered. We injected a 120 mL of her orthopedic pain cocktail into the pericapsular tissues. We then closed in a layered fashion with #1 Vicryl, closing the capsule, #5 FiberWire and multiple ufvocu-ko-efkhn fashion was used through the greater trochanter to reattach the reflected portion of the gluteus medius. We then oversewed the edges of this with #1 Vicryl and again with multiple piponq-rj-pgfgt stitches. The IT band was repaired with multiple mzgvai-ik-ppmed stitches utilizing #1 Vicryl as well. The subcutaneous and [facility] [address] [place] [address] OPERATIVE REPORT Name: PATRICIA HOFFMAN Room: [address] IN .R.#: [id number] Admission: 01/21/21 Attend Phys: Isabella Millan MD Discharge: Date of : 36 Report #: [id number] subcuticular layers were closed in a layered fashion with 2-0 Vicryl. Gaurang were applied to the skin. A sterile dressing was applied. The patient was transferred to PACU in stable condition. <ELECTRONICALLY SIGNED> By: Bandar Sifuentes DO 02/09/212121 34 26Micmeghan Sifuentes DO /nt
[2021-02-09 23:30] VITALS: BP 132/80
[2021-02-10 04:00] VITALS: BP 14/74; BP 147/74
[2021-02-10 04:40] LABS: HEMATOCRIT 22.7 % (37.0-47.0); MCH 33.7 pg (26.0-34.0); MCHC 35.3 g/dL (28.0-37.0); MCV 95.6 fL (80.0-100.0); MPV 6.6 fl. (7.2-11.1); RBC 2.37 mil/uL (4.20-5.00); RDW-CV 16.7 % (10.5-14.5); WBC 10.9 thou/uL (4.0-11.0)
[2021-02-10 05:00] LABS: CALCIUM 7.9 mg/dL (8.5-10.1); CREATININE 0.5 mg/dL (0.6-1.3); POTASSIUM 3.2 mmol/L (3.5-5.1)
[2021-02-10 08:00] VITALS: BP 153/86
[2021-02-10 12:00] VITALS: BP 110/56
[2021-02-10 13:30] VITALS: BP 104/51
[2021-02-10 16:00] VITALS: BP 111/58
[2021-02-10 19:45] VITALS: BP 116/56
[2021-02-11] VITALS: BP 142/73
[2021-02-11 04:00] VITALS: BP 144/90
[2021-02-11 05:12] LABS: HEMATOCRIT 22.7 % (37.0-47.0); HEMOGLOBIN 7.8 gm/dL (12.0-15.0); MCH 33.2 pg (26.0-34.0); MCHC 34.4 g/dL (28.0-37.0); MCV 96.5 fL (80.0-100.0); MPV 6.7 fl. (7.2-11.1); RBC 2.36 mil/uL (4.20-5.00); RDW-CV 16.6 % (10.5-14.5); WBC 9.8 thou/uL (4.0-11.0)
[2021-02-11 05:20] LABS: CALCIUM 7.9 mg/dL (8.5-10.1); CREATININE 0.6 mg/dL (0.6-1.3); POTASSIUM 3.9 mmol/L (3.5-5.1)
[2021-02-11 08:10] VITALS: BP 150/60
--- NOTE | 2021-02-11 14:45 | EKG ---
[place] [address] ELECTROCARDIOGRAM REPORT Name: PATRICIA HOFFMAN Room: [address] ADM IN M.R.#: [id number] Admission: 01/21/21 Attend Phys: Isabella Millan, Discharge: Date of : 36 Date of Service: 02/11/2110 Report #: [id number] THIS REPORT FOR: //name// [facility] Test Date: 2021-02-11 Test Time: 08:10:21 Pat Name: PATRICIA HOFFMAN Department: Room: [address] Gender: F [employer]ing Molder: : 1940 Requested By: Keiko Junior Order Number: [id number] Garfield MD: Kvng Phipps Measurements Intervals [place] Rate: 82 P: IA: QRS: -9 QRSD: 92 T: 38 QT: 366 QTc: 428 Interpretive Statements Atrial fibrillation septal q waves Compared to ECG 01/21/2021 04:56:43 No significant changes Electronically Signed On 02-11-2021 14:44:44 CDT by Kvng Phipps [email or web address] <ELECTRONICALLY SIGNED> By: Kvng Phipps MD, [facility] 02/11/21 1444 0810 0810 Kvng Phipps MD, [facility] /EPI
[2021-02-11 14:53] VITALS: BP 150/60
[2021-02-11 15:19] VITALS: BP 150/60
== END 2021-02-11 16:08 | disposition home health service (06) | DRG 462 ==
LOC: M.ERS 03:34 → M.TBA-ER 05:12 → M.2W 05:12
PROVIDERS: Emergency Medicine; Family Medicine; Internal Medicine; Internal Medicine Nephrology; Orthopaedic Surgery; ADMIT Internal Medicine; ATTEND Internal Medicine
PROC: 0SRR0J9 Replacement of Right Hip Joint, Femoral Surface with Synthetic Substitute, Cemented, Open Approach (ICD-10-PCS; principal; 2021-01-24)
PROC: 0DB68ZX Excision of Stomach, Via Natural or Artificial Opening Endoscopic, Diagnostic (ICD-10-PCS; 2021-01-26)
PROC: 0SRS0J9 Replacement of Left Hip Joint, Femoral Surface with Synthetic Substitute, Cemented, Open Approach (ICD-10-PCS; 2021-01-28)
PROC: 30233N1 Transfusion of Nonautologous Red Blood Cells into Peripheral Vein, Percutaneous Approach (ICD-10-PCS; 2021-01-30)
DX: S72.001A Fracture of unspecified part of neck of right femur, initial encounter for closed fracture (principal); E87.1 Hypo-osmolality and hyponatremia; I48.20 Chronic atrial fibrillation, unspecified; W18.39XA Other fall on same level, initial encounter; Y93.89 Activity, other specified; Y92.89 Other specified places as the place of occurrence of the external cause; Y99.8 Other external cause status; Z20.822 Contact with and (suspected) exposure to COVID-19; E87.6 Hypokalemia; Z88.8 Allergy status to other drugs, medicaments and biological substances; Z79.01 Long term (current) use of anticoagulants; D50.9 Iron deficiency anemia, unspecified; F41.9 Anxiety disorder, unspecified; F03.90 Unspecified dementia, unspecified severity, without behavioral disturbance, psychotic disturbance, mood disturbance, and anxiety; I34.0 Nonrheumatic mitral (valve) insufficiency; Z79.899 Other long term (current) drug therapy